=== PATIENT | female | born 1935 | race Two or more races ===

== ENCOUNTER 2022-09-09 12:51 | Emergency (ER) | payer OTHER ==
[2022-09-09 13:03] VITALS: BP 176/81; PULSE 76; RESP 19; TEMP 98.1; BMI 18.8
[2022-09-09] MEDS ORDERED: ACETAMINOPHEN 325 MG TABLET (FP) PO ONE (13:35)
[2022-09-09] MEDS ORDERED: IBUPROFEN 400 MG TABLET (FP) PO ONE ×2 (13:35→14:01)
[2022-09-09] MEDS ORDERED: ACETAMINOPHEN 325 MG TABLET (FP) ONE (14:01)
== END 2022-09-09 14:52 | disposition home or self-care (01) ==
LOC: FER 12:51
DX: M54.32 Sciatica, left side (principal)
CPT/HCPCS: 73502-TC-LT-FY; 73560-TC-LT-FY; 99284-25

== ENCOUNTER 2022-09-13 11:45 | Emergency (ER) | payer OTHER ==
[2022-09-13 11:51] VITALS: BP 147/96; PULSE 63; RESP 18; TEMP 98; BMI 18.8
[2022-09-13] MEDS ORDERED: DEXAMETHASONE SOD PHOSPHATE 4 MG/1 ML VIAL IM ONE (12:44)
[2022-09-13] MEDS ORDERED: DEXAMETHASONE SOD PHOSPHATE 4 MG/1 ML VIAL ONE (12:46)
== END 2022-09-13 15:05 | disposition home or self-care (01) ==
LOC: FER 11:45
PROC: 3E023GC Introduction of Other Therapeutic Substance into Muscle, Percutaneous Approach (ICD-10-PCS; principal; 2022-09-13)
DX: M54.32 Sciatica, left side (principal)
CPT/HCPCS: 72131-TC; 99284-25

== ENCOUNTER 2022-11-04 12:34 | Emergency (ER) | payer OTHER ==
[2022-11-04 12:43] VITALS: BP 156/67; PULSE 66; RESP 17; TEMP 97.8; BMI 18.8
[2022-11-04] MEDS ORDERED: LIDOCAINE 5% TOPICAL PATCH TP ONE (12:54)
[2022-11-04] MEDS ORDERED: ACETAMINOPHEN 325 MG TABLET (FP) PO ONE (12:54)
[2022-11-04] MEDS ORDERED: LIDOCAINE 5% TOPICAL PATCH ONE (13:23)
[2022-11-04] MEDS ORDERED: ACETAMINOPHEN 325 MG TABLET (FP) ONE (13:23)
[2022-11-04] MEDS ORDERED: LIDOCAINE PATCH REMOVAL MC SCH (22:00)
== END 2022-11-04 15:12 | disposition home or self-care (01) ==
LOC: FER 12:34
DX: M54.50 Low back pain, unspecified (principal); W18.2XXA Fall in (into) shower or empty bathtub, initial encounter
CPT/HCPCS: 70450-TC; 72100-TC-FY; 72125-TC; 72170-TC-FY; 99284-25